=== PATIENT | male | born 1970 | race Caucasian/White ===

== ENCOUNTER 2016-05-13 19:23 | Emergency (ER) | payer BC ==
[~2016-05-13] VITALS: Ht 167.6 cm; Wt 102.1 kg
[2016-05-13] MEDS ORDERED: TDAP [DIPH/PERTUSSIS/TET] 0.5 ML VIAL IM ONE (21:57)
[2016-05-13] MEDS ORDERED: CEFAZOLIN 1 GM ONE (21:57)
[2016-05-13] MEDS: CEFAZOLIN 1 GM VIAL IM ONE (22:09)
[2016-05-13] MEDS: LIDOCAINE HCL/PF 1% 30 ML VIAL TP ONE (22:10)
[2016-05-13] MEDS: TDAP [DIPH/PERTUSSIS/TET] 0.5 ML VIAL IM ONE (22:10)
[2016-05-13 22:52] VITALS: BP 142/84
== END 2016-05-13 22:53 | disposition home or self-care (01) ==
LOC: ER 19:29
DX: S01.312A Laceration without foreign body of left ear, initial encounter (principal); F10.20 Alcohol dependence, uncomplicated; W01.198A Fall on same level from slipping, tripping and stumbling with subsequent striking against other object, initial encounter; Y92.89 Other specified places as the place of occurrence of the external cause; Y93.89 Activity, other specified; Y99.8 Other external cause status
CPT/HCPCS: 70450-TC; 90715; A4606; J0690; J3490; Z7610

== ENCOUNTER 2017-05-14 09:03 | Emergency (ER) | payer BC ==
[~2017-05-14] VITALS: Ht 167.6 cm; Wt 99.8 kg
[2017-05-14 09:08] VITALS: BP 140/91
== END 2017-05-14 10:51 | disposition home or self-care (01) ==
LOC: ER 09:03
DX: S69.92XA Unspecified injury of left wrist, hand and finger(s), initial encounter (principal); F10.10 Alcohol abuse, uncomplicated; V00.131A Fall from skateboard, initial encounter; Y93.51 Activity, roller skating (inline) and skateboarding; Y92.830 Public park as the place of occurrence of the external cause; Y99.8 Other external cause status
CPT/HCPCS: 29125; 73110; 99284; A4606; Z7610

== ENCOUNTER 2018-11-26 19:21 | Emergency (ER) | payer BC ==
[2018-11-26] MEDS ORDERED: TDAP [DIPH/PERTUSSIS/TET] 0.5 ML VIAL IM ONE ×2 (19:50→20:00)
[2018-11-26] MEDS ORDERED: LIDOCAINE 1%-EPI 1:100,000 20 ML VIAL ONE (19:50)
[2018-11-26] MEDS ORDERED: LIDOCAINE 1%-EPI 1:100,000 20 ML VIAL TP ONE (20:00)
== END 2018-11-26 20:33 | disposition home or self-care (01) ==
DX: S81.011A Laceration without foreign body, right knee, initial encounter (principal); W01.198A Fall on same level from slipping, tripping and stumbling with subsequent striking against other object, initial encounter; Y93.H2 Activity, gardening and landscaping; Y92.89 Other specified places as the place of occurrence of the external cause; Y99.8 Other external cause status
CPT/HCPCS: 12002; 90471; 90715; 99283; J3490